=== PATIENT | female | born 1935 | race Caucasian/White ===

== ENCOUNTER 2020-12-01 22:38 | Emergency (ER) | payer MEDICARE ==
[~2020-12-01] VITALS: Ht 165.1 cm; Wt 69.0 kg
[2020-12-01] MEDS ORDERED: CALC500T54 PO (23:20)
[2020-12-01] MEDS ORDERED: BUPR300T3 PO (23:20)
[2020-12-01] MEDS ORDERED: CLON-77 PO (23:21)
[2020-12-01] MEDS ORDERED: CLON0.1T PO (23:21)
[2020-12-01] MEDS ORDERED: FLUO40CA2 PO (23:21)
[2020-12-01] MEDS ORDERED: MULT-496 PO (23:22)
[2020-12-01] MEDS ORDERED: OLME40TA12 PO (23:23)
--- NOTE | 2020-12-02 02:34 | ED.ADGEN ---
Past Medical History Past Surgical History: Tonsillectomy Additional Past Surgical Histo: BILAT MASTECTOMY/CYSTIC BREAST SX,R FOOT Smoking Status: Never Smoker Alcohol Use: Occasionally General Adult EDM: Chief Complaint: ABDOMINAL PAIN HPI: HPI: Patient is a 85 year old female coming in for lower abdominal pain and cramping. Patient states she is not had a bowel movements in the past 5 to 6 days. States she has had occasional small hard bowel movements and straining. Patient normally takes MiraLAX daily but has been out of town and forgot to take with her. Patient states that today she took a dose of 2 capfuls and a tablespoon of magnesium without any bowel movement. Patient states she is still passing gas and did have a small spot of watery stool. No other complaints, nausea or vomiting. Review of Systems: Review of Systems: All other systems within normal limits except for as noted in the HPI Current Medications: Current Medications Medications (Trade) Dose Ordered Sig/Katherine Start Time Stop Time Status Last Admin Dose Admin Bisacodyl (Dulcolax Supp) 10 mg 1X ONCE 12/02/20 03:00 12/02/20 03:01 DC 12/02/20 02:56 10 MG Docusate Sodium (Enemeez) 283 mg 1X ONCE 12/02/20 03:00 12/02/20 03:01 DC 12/02/20 02:57 283 MG Allergies: Allergies: Allergies Coded Allergies Type Severity Reaction Last Updated Verified azithromycin Allergy Severe RASH/PASS OUT 12/01/20 Yes Penicillins Allergy Intermediate Rash 12/01/20 Yes Physical Exam: PE: Constitutional: Well developed, well nourished, no acute distress, non-toxic christine earance. [] HENT: Normocephalic, atraumatic, bilateral external ears normal, nose normal. [] Eyes: PERRLA, conjunctiva normal, no discharge. [] Neck: No rigidity, supple, no stridor. [] Cardiovascular: Regular rate and rhythm, brisk cap refill [] Lungs & Thorax: Non labored symmetric respirations, no tachypnea or respiratory distress [] Abdomen: Soft, nondistended, no tenderness or guarding palpation. Skin: Warm, dry, no erythema, no rash. [] Back: Unremarkable Extremities: No deformities, range of motion grossly intact, no lower extremity edema [] Neurologic: Alert and oriented X 3, no focal deficits noted. [] Psychologic: Affect normal, judgement normal, mood normal. [] Current Patient Data: Vital Signs: Vital Signs Date Time Temp Pulse Resp B/P (MAP) Pulse Ox O2 Delivery O2 Flow Rate FiO2 12/01/20 23:23 98.1 80 22 145/65 95 Room Air 98.1 EKG: EKG: [] Heart Score: C/O Chest Pain: No Risk Factors: Risk Factors: DM, Current or recent (<one month) smoker, HTN, HLP, family history of CAD, obesity. Risk Scores: Score 0 - 3: 2.5% MACE over next 6 weeks - Discharge Home Score 4 - 6: 20.3% MACE over next 6 weeks - Admit for Clinical Observation Score 7 - 10: 72.7% MACE over next 6 weeks - Early Invasive Strategies Radiology/Procedures: Radiology/Procedures: [facility] [address] [place] [address] IMAGING REPORT Signed PATIENT: MERLYN BOONE LACCOUNT: [id number] : 1935 LOCATION: ER AGE: 85 SEX: F EXAM STATUS: REG ER ORD. PHYSICIAN: FRANKLYN CALDWELL MD REASON: obstruction PROCEDURE: ABDOMEN SUPINE & UPRIGHT EXAMINATION: Abdominal radiograph. VIEWS: 2 COMPARISON: None INDICATION: 85 years, Female, obstruction. FINDINGS: Nonobstructive bowel gas pattern. Moderate amount of stool throughout the colon. No gross pneumoperitoneum. No abnormal intra-abdominal calcifications. Left basilar subsegmental atelectasis versus infiltrate.No acute process process. IMPRESSION: 1. Nonobstructive bowel gas pattern. 2. Moderate amount of colonic stool burden. 3. Left basilar subsegmental atelectasis versus infiltrate. Electronically signed by: Eden Foster MD (12/02/2020 2:58 AM) [facility] DICTATED and SIGNED BY: EDEN FOSTER MD DATE: 12/02/20 [id number] [] Course & Med Decision Making: Course & Med Decision Making Pertinent Labs and Imaging studies reviewed. (See chart for details) [] Dragon Disclaimer: Dragon Disclaimer: This electronic medical record was generated, in whole or in part, using a voice recognition dictation system. Departure Departure Impression: Primary Impression: Constipation Disposition: HOME / SELF CARE / HOMELESS Condition: IMPROVED Referrals: JAYRO METCALF MD (PCP) Patient Instructions: Constipation, Adult Scripts Glycerin (ADULT GLYCERIN) 1 Each Supp.rect 1 EACH RC PRN DAILY PRN for CONSTIPATION for 10 Days, #10 SUPP.RECT Prov: FRANKLYN CALDWELL MD 12/02/20 FRANKLYN CALDWELL MD Dec 02, 2020 02:34
[2020-12-02 03:00] VITALS: BP 168/71
[2020-12-02] MEDS ORDERED: DOCUSATE SODIUM 283 MG/5 ML ENEMA. PR ONE (03:00)
[2020-12-02] MEDS ORDERED: BISACODYL 10 MG SUPP.RECT. PR ONE (03:00)
--- NOTE | 2020-12-02 03:00 | RAD ---
EXAMINATION: Abdominal radiograph. VIEWS: 2 COMPARISON: None INDICATION: 85 years, Female, obstruction. FINDINGS: Nonobstructive bowel gas pattern. Moderate amount of stool throughout the colon. No gross pneumoperit oneum. No abnormal intra-abdominal calcifications. Left basilar subsegmental atelectasis versus infil trate.No acute process process. IMPRESSION: 1. Nonobstructive bowel gas pattern. 2. Moderate amount of colonic stool burden. 3. Left basilar subsegmental atelectasis versus infiltrate. Electronically signed by: Shahbaz Foster MD (12/02/2020 2:58 AM) [facility]
[2020-12-02] MEDS ORDERED: GLYC1SUP RC (03:46)
== END 2020-12-02 04:04 | disposition home or self-care (01) ==
LOC: ER 22:38
DX: K59.00 Constipation, unspecified (principal); Z88.1 Allergy status to other antibiotic agents; Z88.0 Allergy status to penicillin
CPT/HCPCS: 74021; 99283

== ENCOUNTER → 2021-01-06 | Outpatient (CLI) | payer MEDICARE ==
[~2021-01-06] MED LIST: BUPR300T3 PO; CALC500T54 PO; CLON-77 PO; CLON0.1T PO; FLUO40CA2 PO; GLYC1SUP RC; MULT-496 PO; OLME40TA12 PO
--- NOTE | 2021-01-06 15:10 | KCIC ---
EXAM: Chest, 2 views. HISTORY: Cough. COMPARISON: None. FINDINGS: 2 views of the chest are obtained. There is emphysema. There is a nodule overlying the left lower thorax due to a nipple shadow. There are few calcified granulomas. The heart is normal in size . There are implanted breast prostheses. There is no consolidation, pleural effusion or pneumothorax. IMPRESSION: Emphysema. No acute pulmonary finding. Electronically signed by: Hilda Lay MD (01/06/2021 3:07 PM) [id number]
== END ==
LOC: KCIC 12:49
PROVIDERS: ATTEND Internal Medicine Critical Care Medicine
DX: J43.9 Emphysema, unspecified (principal); J84.10 Pulmonary fibrosis, unspecified; R91.1 Solitary pulmonary nodule
CPT/HCPCS: 71046